=== PATIENT | male | born 1970 | race Caucasian/White ===

== ENCOUNTER 2017-09-19 18:58 | Emergency (ER) | payer MEDICAID ==
[~2017-09-19] VITALS: Ht 175.3 cm; Wt 117.9 kg
[~2017-09-19 18:58] MED LIST: MET25T PO; ZOLP10TA PO
[2017-09-19] MEDS ORDERED: PANTOPRAZOLE 40 MG/10 ML VIAL IV ONE (19:54)
[2017-09-19] MEDS ORDERED: SODIUM CHLORIDE 0.9% 1,000 ML IV ONE (20:00)
[2017-09-19] MEDS ORDERED: ONDANSETRON HCL 4 MG/2 ML VIAL IV ONE (20:00)
[2017-09-19 20:24] LABS: Basophils # (auto) 0.1 uL; Basophils % (auto) 0.9 % (0.0-2.0); Eosinophils # (auto) 0.1 uL; Eosinophils % (auto) 0.8 % (0.0-7.0); Hematocrit 49.5 % (41.0-53.0); Hemoglobin 16.8 g/dL (13.5-17.5); Lymphocytes # (auto) 2.2 uL; Lymphocytes % (auto) 21.7 % (10.0-50.0); Mean Corpuscular Hemoglobin 28.4 pg (28.0-32.0); Mean Corpuscular Hgb Conc. 33.9 g/dL (32.0-36.0); Mean Corpuscular Volume 83.8 fL (80.0-100.0); Monocytes # (auto) 0.9 uL; Monocytes % (auto) 8.6 % (0.0-12.0); Neutrophils # (auto) 6.8 uL; Platelet Count (auto) 228 10^3/uL (140-450); Red Cell Distribution Width 13.8 % (11.8-14.3); White Blood Cell 10.1 10^3/uL (4.4-10.8)
[2017-09-19 20:33] LABS: INR 1.03 (0.9-1.15); Partial Thromboplastin Time 29.6 sec (22.64-33.71); Prothrombin Time 11.2 sec (9.37-12.3)
[2017-09-19 20:45] LABS: Acetaminophen < 2.0 ug/mL (10-30); Salicylate 3.6 mg/dL (2.8-20.0)
[2017-09-19 20:48] LABS: Alanine Aminotransferase 72 U/L (16-61); Albumin 4.2 g/dL (3.4-5.0); Alkaline Phosphatase 73 U/L (45-117); Amylase 34 U/L (25-115); Anion Gap 7 (5-15); Aspartate Aminotransferase 33 U/L (15-37); BUN/Creatinine Ratio 14.8; Bilirubin, Total 0.4 mg/dL (0.2-1.0); Blood Alcohol < 3.0 mg/dL (0-5); Blood Urea Nitrogen 19 mg/dL (7-18); Calcium 9.7 mg/dL (8.5-10.1); Carbon Dioxide 27 mmol/L (21-32); Chloride 105 mmol/L (98-107); GFR African American 78 mL/min; GFR Non-African American 64 mL/min; Glucose 116 mg/dL (74-106); Lipase 169 U/L (73-393); Magnesium 2.5 mg/dL (1.6-2.6); Potassium 4.1 mmol/L (3.5-5.1); Sodium 139 mmol/L (136-145); Total Protein 7.9 g/dL (6.4-8.2)
[2017-09-20] MEDS ORDERED: SODIUM CHLORIDE 0.9% 1,000 ML IV ONE (04:00)
[2017-09-20 04:46] LABS: Urine Bacteria NONE SEEN /hpf (None Seen); Urine Blood Negative /uL (Negative); Urine Mucus FEW (None Seen); Urine Specific Gravity 1.008 (1.001-1.035); Urine WBC 2 /hpf (0 - 3)
[2017-09-20 05:02] LABS: Alcohol, Urine < 3.0 mg/dL (0-5); Amphetamine Screen, Urine POSITIVE (NEGATIVE); Barbiturate Scree,Urine NEGATIVE (NEGATIVE); Benzodiazephine Screen, Urine NEGATIVE (NEGATIVE); Cannabinoid Screen, Urine NEGATIVE (NEGATIVE); Cocaine Screen, Urine NEGATIVE (NEGATIVE); Opiate Scree,Urine NEGATIVE (NEGATIVE); Phencyclidine Screen, Urine NEGATIVE (NEGATIVE)
[2017-09-20] MEDS: LORazepam 0.5 MG TAB PO PRN (18:20)
[2017-09-20] MEDS ORDERED: QUEtiapine FUMARATE 100 MG TAB PO SCH (22:00)
[2017-09-21] MEDS: LORazepam 0.5 MG TAB PO PRN (13:07)
[2017-09-21] MEDS ORDERED: METOPROLOL TARTRATE 50 MG TAB PO ONE (13:25)
[2017-09-21] MEDS ORDERED: metFORMIN HYDROCHLORIDE 500 MG TAB PO ONE (13:25)
[2017-09-21] MEDS ORDERED: TAMSULOSIN HYDROCHLORIDE 0.4 MG CAP PO ONE (13:30)
[2017-09-21] MEDS ORDERED: NICOTINE 7MG/24HR TOPICAL PATCH TD ONE (13:30)
[2017-09-21 16:38] VITALS: BP 139/97
[2017-09-21] MEDS ORDERED: METOPROLOL TARTRATE 50 MG TAB PO SCH (22:00)
[2017-09-21] MEDS ORDERED: metFORMIN HYDROCHLORIDE 500 MG TAB PO SCH (22:00)
== END 2017-09-21 16:52 | disposition short-term general hospital (02) ==
LOC: EDBD 18:58 → ER 19:00
DX: T43.622A Poisoning by amphetamines, intentional self-harm, initial encounter (principal); R10.9 Unspecified abdominal pain; R45.851 Suicidal ideations; I10 Essential (primary) hypertension; F41.9 Anxiety disorder, unspecified; F32.9 Major depressive disorder, single episode, unspecified; F20.9 Schizophrenia, unspecified; F17.210 Nicotine dependence, cigarettes, uncomplicated; Y92.89 Other specified places as the place of occurrence of the external cause
CPT/HCPCS: 36415; 74176; 80053; 80307; 80320; 80329; 81001; 82150; 82962; 83690; 83735; 85025; 85610; 85730; 93005; 96361; 96374; 99285; C9113; J2405; J7030

== ENCOUNTER 2019-03-20 10:40 | Emergency (ER) | payer MEDICAID ==
[~2019-03-20] VITALS: Ht 175.3 cm; Wt 90.7 kg
[2019-03-20] MEDS ORDERED: SODIUM CHLORIDE 0.9% 1,000 ML IV ONE (11:00)
[2019-03-20] MEDS ORDERED: ONDANSETRON HCL 4 MG/2 ML VIAL IV ONE (11:00)
[2019-03-20] MEDS ORDERED: MORPHINE SULFATE 4 MG/ML SYR/VIAL IV ONE (11:00)
[2019-03-20 11:17] LABS: Basophils # (auto) 0.1 uL; Eosinophils # (auto) 0.1 uL; Lymphocytes # (auto) 2.1 uL; Monocytes # (auto) 0.9 uL; White Blood Cell 11.2 10^3/uL (4.4-10.8)
[2019-03-20 11:18] LABS: Basophils % (auto) 0.9 % (0.0-2.0); Eosinophils % (auto) 0.6 % (0.0-7.0); Hemoglobin 17.1 g/dL (13.5-17.5); Lymphocytes % (auto) 18.7 % (10.0-50.0); Mean Corpuscular Hemoglobin 27.3 pg (28.0-32.0); Mean Corpuscular Hgb Conc. 34.2 g/dL (32.0-36.0); Mean Corpuscular Volume 79.8 fL (80.0-100.0); Monocytes % (auto) 7.9 % (0.0-12.0); Neutrophils % (auto) 71.9 % (37.0-80.0); Nucleated Red Blood Cells % 0.4 %; Platelet Count (auto) 231 10^3/uL (140-450); Red Blood Cells 6.26 10^6/uL (4.5-5.90); Red Cell Distribution Width 14.8 % (11.8-14.3)
[2019-03-20 11:26] LABS: Albumin 3.9 g/dL (3.4-5.0); Calcium 9.3 mg/dL (8.5-10.1); Potassium 3.5 mmol/L (3.5-5.1)
[2019-03-20 11:30] LABS: BUN/Creatinine Ratio 9.9; Bilirubin, Total 0.4 mg/dL (0.2-1.0); Total Protein 7.4 g/dL (6.4-8.2)
[2019-03-20] MEDS ORDERED: cloNIDine HCL 0.1 MG TAB ONE (11:59)
[2019-03-20] MEDS ORDERED: cloNIDine HCL 0.1 MG TAB PO ONE ×2 (12:00→13:00)
[2019-03-20 13:06] LABS: Urine Bacteria NONE SEEN /hpf (None Seen); Urine Blood 1+ /uL (Negative); Urine Mucus FEW (None Seen); Urine WBC 2 /hpf (0 - 3)
[2019-03-20 15:14] VITALS: BP 150/97
== END 2019-03-20 15:32 | disposition home or self-care (01) ==
LOC: ER 10:40 → EDBD 10:40 → ER 15:31
DX: K42.9 Umbilical hernia without obstruction or gangrene (principal); N50.819 Testicular pain, unspecified; I10 Essential (primary) hypertension; M54.9 Dorsalgia, unspecified; E11.9 Type 2 diabetes mellitus without complications; E78.5 Hyperlipidemia, unspecified; F17.210 Nicotine dependence, cigarettes, uncomplicated; Z88.6 Allergy status to analgesic agent; Z88.1 Allergy status to other antibiotic agents
CPT/HCPCS: 36415; 74176; 76870; 80053; 81001; 85025; 94761; 96374; 96375; 99284; J2270; J2405

== ENCOUNTER 2019-04-22 12:05 | Emergency (ER) | payer MEDICAID ==
[~2019-04-22] VITALS: Ht 175.3 cm; Wt 99.8 kg
[2019-04-22] MEDS ORDERED: SODIUM CHLORIDE 0.9% 1,000 ML IVB ONE (12:22)
[2019-04-22] MEDS ORDERED: ONDANSETRON HCL 4 MG/2 ML VIAL IV ONE (12:30)
[2019-04-22] MEDS ORDERED: METOCLOPRAMIDE HCL 5MG/ml INJ 2ml VIAL IV ONE ×3 (12:30)
[2019-04-22] MEDS ORDERED: KETOROLAC TROMETH 30 MG/ML 1ML VIAL IV ONE ×2 (12:30)
[2019-04-22 12:37] LABS: Basophils # (auto) 0.1 uL; Eosinophils # (auto) 0.1 uL; Monocytes # (auto) 0.8 uL; Monocytes % (auto) 4.5 % (0.0-12.0); Nucleated Red Blood Cells % 0.3 %; Red Blood Cells 6.61 10^6/uL (4.5-5.90)
[2019-04-22 12:39] LABS: Basophils % (auto) 0.6 % (0.0-2.0); Eosinophils % (auto) 0.8 % (0.0-7.0); Hematocrit 53.2 % (41.0-53.0); Hemoglobin 18.1 g/dL (13.5-17.5); Lymphocytes # (auto) 1.4 uL; Lymphocytes % (auto) 8.2 % (10.0-50.0); Mean Corpuscular Hemoglobin 27.4 pg (28.0-32.0); Mean Corpuscular Volume 80.5 fL (80.0-100.0); Neutrophils # (auto) 14.4 uL; Neutrophils % (auto) 85.9 % (37.0-80.0); Platelet Count (auto) 240 10^3/uL (140-450); Red Cell Distribution Width 14.4 % (11.8-14.3); White Blood Cell 16.8 10^3/uL (4.4-10.8)
[2019-04-22 13:03] LABS: Albumin 3.8 g/dL (3.4-5.0); Calcium 9.1 mg/dL (8.5-10.1); Magnesium 2.3 mg/dL (1.6-2.6); Potassium 3.9 mmol/L (3.5-5.1)
[2019-04-22 13:06] LABS: BUN/Creatinine Ratio 9.8; Bilirubin, Total 0.8 mg/dL (0.2-1.0); Total Protein 7.5 g/dL (6.4-8.2)
[2019-04-22] MEDS ORDERED: HYDROmorphone HCL 2 MG/ML VL IV ONE (13:30)
[2019-04-22 15:31] VITALS: BP 160/96
== END 2019-04-22 15:32 | disposition home or self-care (01) ==
LOC: ER 12:05 → EDBD 12:05 → ER 15:32
DX: N45.1 Epididymitis (principal); N50.82 Scrotal pain; E11.21 Type 2 diabetes mellitus with diabetic nephropathy; F20.9 Schizophrenia, unspecified; E11.9 Type 2 diabetes mellitus without complications; E78.5 Hyperlipidemia, unspecified; I10 Essential (primary) hypertension; F17.210 Nicotine dependence, cigarettes, uncomplicated; Z88.8 Allergy status to other drugs, medicaments and biological substances; Z79.899 Other long term (current) drug therapy
CPT/HCPCS: 36415; 74176; 76870; 80053; 83690; 83735; 85025; 96374; 96375; 99284; J1170; J1885; J2765; J7030; J2405

== ENCOUNTER 2022-06-05 23:09 | Emergency (ER) | payer MEDICAID ==
[~2022-06-05] VITALS: Ht 182.9 cm; Wt 109.1 kg
[2022-06-06 00:09] LABS: Eosinophils # (auto) 0.2 10 ^3/uL (0-0.8)
[2022-06-06 00:11] LABS: Basophils # (auto) 0.1 10 ^3/uL (0-0.2); Basophils % (auto) 1.4 % (0.0-2.0); Hematocrit 40.3 % (41.0-53.0); Hemoglobin 13.1 g/dL (13.5-17.5); Lymphocytes # (auto) 2.3 10 ^3/uL (0.4-5.4); Lymphocytes % (auto) 23.5 % (10.0-50.0); Mean Corpuscular Hemoglobin 26.1 pg (28.0-32.0); Mean Corpuscular Hgb Conc. 32.6 g/dL (32.0-36.0); Mean Corpuscular Volume 80.2 fL (80.0-100.0); Monocytes # (auto) 0.8 10 ^3/uL (0-1.3); Monocytes % (auto) 8.4 % (0.0-12.0); Neutrophils # (auto) 6.4 10 ^3/uL (1.6-8.6); Neutrophils % (auto) 64.7 % (37.0-80.0); Red Blood Cells 5.03 10^6/uL (4.5-5.90); Red Cell Distribution Width 14.5 % (11.8-14.3); White Blood Cell 9.9 10^3/uL (4.4-10.8)
[2022-06-06 00:33] LABS: Albumin 3.4 g/dL (3.4-5.0); Calcium 8.8 mg/dL (8.5-10.1); Potassium 3.3 mmol/L (3.5-5.1)
[2022-06-06 00:35] LABS: Bilirubin, Total 0.2 mg/dL (0.2-1.0); Total Protein 6.4 g/dL (6.4-8.2)
[2022-06-06] MEDS ORDERED: SODIUM CHLORIDE 0.9% 1,000 ML IV ONE (01:30)
[2022-06-06 02:25] LABS: Urine Bacteria NONE SEEN /hpf (None Seen); Urine Blood Negative /uL (Negative); Urine Hyaline Cast FEW /lpf (0 - 2); Urine Specific Gravity 1.017 (1.001-1.035); Urine WBC <1 /hpf (0 - 3)
[2022-06-06 02:39] LABS: Alcohol, Urine < 3.0 mg/dL (0-10); Amphetamine Screen, Urine POSITIVE (NEGATIVE); Barbiturate Scree,Urine NEGATIVE (NEGATIVE); Benzodiazephine Screen, Urine NEGATIVE (NEGATIVE); Cannabinoid Screen, Urine NEGATIVE (NEGATIVE); Cocaine Screen, Urine NEGATIVE (NEGATIVE); Opiate Scree,Urine NEGATIVE (NEGATIVE); Phencyclidine Screen, Urine NEGATIVE (NEGATIVE)
[2022-06-06 08:00] VITALS: BP 142/99
== END 2022-06-06 09:45 | disposition left against medical advice (07) ==
LOC: EDBD 23:09 → ER 23:09
DX: G45.9 Transient cerebral ischemic attack, unspecified (principal); E86.0 Dehydration; R79.89 Other specified abnormal findings of blood chemistry; I11.0 Hypertensive heart disease with heart failure; I50.9 Heart failure, unspecified; E11.9 Type 2 diabetes mellitus without complications; E78.5 Hyperlipidemia, unspecified; F17.210 Nicotine dependence, cigarettes, uncomplicated; Z59.00 Homelessness unspecified; Z79.899 Other long term (current) drug therapy; Z88.8 Allergy status to other drugs, medicaments and biological substances; Z20.822 Contact with and (suspected) exposure to COVID-19
CPT/HCPCS: 36415; 70450; 71045; 80053; 80307; 81001; 82140; 82550; 83690; 83880; 84484; 85025; 87426; 93005; 96360; 99285; J7030